=== PATIENT | male | born 2000 | race Two or more races ===

== ENCOUNTER 2023-01-15 08:28 | Emergency (ER) | payer BC, MEDICAID ==
[~2023-01-15] VITALS: Ht 175.3 cm; Wt 76.5 kg
[2023-01-15 08:58] VITALS: BP 146/82
[2023-01-15] MEDS ORDERED: AZITHROMYCIN 250 MG TAB PO ONE (09:30)
[2023-01-15] MEDS ORDERED: cefTRIAXone SOD 500 MG VL IM ONE (09:30)
[2023-01-15] MEDS ORDERED: AUG875T PO (09:38)
[2023-01-15] MEDS ORDERED: IBUP600T28 PO (09:38)
[2023-01-15 10:09] LABS: Urine Bacteria NONE SEEN /hpf (None Seen); Urine Blood Negative /uL (Negative); Urine Mucus FEW (None Seen); Urine Specific Gravity 1.034 (1.001-1.035); Urine WBC 4 /hpf (0 - 3)
[2023-01-15] MEDS ORDERED: CEPH-510 PO (10:31)
[2023-01-17 06:18] LABS: RPR Non Reactive (Non Reactive)
== END 2023-01-15 10:43 | disposition home or self-care (01) ==
LOC: ER 08:28
DX: H66.92 Otitis media, unspecified, left ear (principal); N39.0 Urinary tract infection, site not specified; Z79.899 Other long term (current) drug therapy
CPT/HCPCS: 81001; 86592; 86703; 87086; 87491; 87591; 96372; 99283; J0696

== ENCOUNTER 2023-01-22 18:39 | Emergency (ER) | payer BC ==
[~2023-01-22] VITALS: Ht 175.3 cm; Wt 74.7 kg
[~2023-01-22 18:39] MED LIST: AUG875T PO; CEPH-510 PO; IBUP600T28 PO
[2023-01-22 22:00] VITALS: BP 133/75
[2023-01-22] MEDS ORDERED: CIPR1SUS8 OT (22:27)
[2023-01-22] MEDS ORDERED: cefTRIAXone SOD 1,000 MG VL IM ONE (22:45)
== END 2023-01-22 23:34 | disposition home or self-care (01) ==
LOC: ER 18:39
DX: H66.92 Otitis media, unspecified, left ear (principal); Z79.899 Other long term (current) drug therapy
CPT/HCPCS: 96372; 99283; J0696